=== PATIENT | male | born 1970 | race Caucasian/White ===

== ENCOUNTER 2018-09-17 17:22 | Emergency (ER) | payer MEDICAID ==
[~2018-09-17] VITALS: Ht 175.3 cm; Wt 63.5 kg
[2018-09-17 17:28] VITALS: BP_SYST 139
[2018-09-17 18:25] LABS: BARBITURATE, URINE NEGATIVE (NEG <=200); BENZODIAZEPINE, URINE POSITIVE (NEG <=150); CANNABINOID, URINE NEGATIVE (NEG <=50); COCAINE, URINE NEGATIVE (NEG <=150); METHAMPHETAMINES SCREEN,URINE NEGATIVE (NEG <=500); OPIATE, URINE NEGATIVE (NEG <=100); PHENCYCLIDINE SCREEN,URINE NEGATIVE (NEG <=25); UR TRICYCLIC ANTIDEPRESSANTS NEGATIVE (NEG <=300); URINE AMPHETAMINE NEGATIVE (NEG <=500); URINE METHADONE NEGATIVE (NEG <=200); URINE OXYCODONE SCREEN NEGATIVE (NEG <=100); URINE PROPOXYPHENE SCREEN NEGATIVE (NEG <=300)
[2018-09-17 18:41] LABS: BASOPHILS # (AUTO) 0.1 K/uL (0.0-0.2); BASOPHILS % (AUTO) 0.9 % (0.0-2.0); EOSINOPHILS # (AUTO) 0.3 K/uL (0.0-0.4); EOSINOPHILS % (AUTO) 4.2 % (0.0-4.0); HEMATOCRIT 44.6 % (36-54); LYMPHOCYTES % (AUTO) 25.7 % (20.5-51.5); MEAN CORPUSCULAR HEMOGLOBIN 31 pg (27-31); MEAN CORPUSCULAR HGB CONC 34 % (32-36); MEAN CORPUSCULAR VOLUME 91 fL (79.0-98.0); MONOCYTES # (AUTO) 0.8 K/uL (0.0-1.0); MONOCYTES % (AUTO) 10.3 % (1.7-9.3); NEUTROPHILS # (AUTO) 4.6 K/uL (1.8-7.7); NEUTROPHILS % (AUTO) 58.9 % (40.0-70.0); PLATELET COUNT (AUTO) 235 K/uL (130-430); WHITE BLOOD COUNT (AUTO) 7.7 K/uL (4.8-10.8)
[2018-09-17 18:49] LABS: ANION GAP 8 (5-15); CALCIUM 8.2 mg/dL (8.4-11.0); CHLORIDE 105 mmol/L (98-107); CREATININE 0.94 mg/dL (0.55-1.30); GFR AFRICAN AMERICAN 111 mL/min (>90); GLUCOSE 104 mg/dL (70-99); POTASSIUM 3.7 mmol/L (3.5-5.1); SODIUM SERUM 140 mmol/L (136-145); UREA NITROGEN, BLOOD 16 mg/dL (8-21)
[2018-09-17 18:54] LABS: ALANINE AMINOTRANSFERASE 18 U/L (12-78); ALBUMIN 3.7 g/dL (3.4-4.8); ASPARTATE AMINOTRANSFERASE 18 U/L (10-37); TOTAL BILIRUBIN 0.4 mg/dL (0.0-1.0)
[2018-09-17 18:55] LABS: ACETAMINOPHEN < 1 ug/mL (1-30); ALCOHOL, BLOOD < 3 mg/dL (<10)
[2018-09-17 20:03] VITALS: BP_SYST 139
== END 2018-09-17 20:03 | disposition home or self-care (01) ==
LOC: SED 17:22
DX: T42.4X1A Poisoning by benzodiazepines, accidental (unintentional), initial encounter (principal); Y92.89 Other specified places as the place of occurrence of the external cause
CPT/HCPCS: 36415; 80053; 80307; 85025; 99283; G0480; G0481; G0482

== ENCOUNTER 2019-01-09 13:35 | Emergency (ER) | payer MEDICAID ==
[2019-01-21 11:57] LABS: BILIRUBIN,URINE NEGATIVE (NEGATIVE); BLOOD, URINE NEGATIVE (NEGATIVE); CLARITY/URINE HAZY (CLEAR); COLOR,URINE YELLOW (YELLOW); GLUCOSE,URINE NEGATIVE (NEGATIVE); KETONES,URINE NEGATIVE (NEGATIVE); LEUKOCYTE ESTERASE ,URINE NEGATIVE (NEGATIVE); PH,URINE 6.5 (5.0-8.0); PROTEIN URINE 1+ (NEGATIVE)
[2019-01-21 11:58] LABS: NITRITE, URINE NEGATIVE (NEGATIVE); UROBILINOGEN,URINE 0.2 (0.2-1.0)
[2019-01-21 12:00] LABS: BACTERIA,URINE FEW /HPF (None Seen); RBC,URINE 0-3 /HPF (0-3); WBC,URINE 0-3 /HPF (0-3)
[2019-01-21 12:08] LABS: MUCUS,URINE 3+ /LPF (None Seen)
== END 2019-01-09 17:17 | disposition home or self-care (01) ==
LOC: SED 13:35
DX: S39.011A Strain of muscle, fascia and tendon of abdomen, initial encounter (principal); X50.9XXA Other and unspecified overexertion or strenuous movements or postures, initial encounter; Y93.89 Activity, other specified; Y92.89 Other specified places as the place of occurrence of the external cause; Y99.8 Other external cause status
CPT/HCPCS: 81000-TC; 96372; 99283

== ENCOUNTER 2023-05-21 15:48 | Inpatient (IN) | payer MEDICAID ==
[~2023-05-21] VITALS: Ht 175.3 cm; Wt 44.5 kg
[2023-05-21 15:59] VITALS: BP_SYST 101; PULSE 89; RESP 20; TEMP 95.9; O2SAT 93
[2023-05-21 17:48] LABS: INFLUENZA TYPE A Negative (NEGATIVE); INFLUENZA TYPE B NEGATIVE (NEGATIVE)
[2023-05-21] MEDS: NACL 0.9% 1,000 ML IV ONE (19:30)
[2023-05-21 20:05] LABS: HEMOGLOBIN 11.6 g/dL (14.0-18.0); MEAN CORPUSCULAR HEMOGLOBIN 32 pg (27-31); MEAN CORPUSCULAR HGB CONC 34 % (32-36); MEAN CORPUSCULAR VOLUME 95 fL (79.0-98.0); PLATELET COUNT (AUTO) 264 K/uL (130-430); RED CELL DISTRIBUTION WIDTH 14.7 % (9.0-15.0); WHITE BLOOD COUNT (AUTO) 10.1 K/uL (4.8-10.8)
[2023-05-21 20:11] LABS: ALANINE AMINOTRANSFERASE 89 U/L (12-78); ALBUMIN 2.3 g/dL (3.4-4.8); ANION GAP 6 (5-15); ASPARTATE AMINOTRANSFERASE 97 U/L (10-37); CARBON DIOXIDE 31 mmol/L (23-29); CHLORIDE 110 mmol/L (98-107); CREATININE 0.83 mg/dL (0.55-1.30); GFR AFRICAN AMERICAN 126 mL/min (>90); GFR NON AFRICAN-AMERICAN 104 mL/min (>90); GLUCOSE 99 mg/dL (74-106); SODIUM SERUM 147 mmol/L (136-145); TOTAL BILIRUBIN 0.6 mg/dL (0.0-1.0); TOTAL PROTEIN, SERUM 7.5 g/dL (6.4-8.3); UREA NITROGEN, BLOOD 45 mg/dL (8-21)
[2023-05-21 20:14] LABS: BILIRUBIN,DIRECT 0.2 mg/dL (0.0-0.3)
[2023-05-21] MEDS: IPRATROPIUM/ALBUTEROL SULFATE 3 ML AMPUL.NEB (DUONEB) INH ONE (20:31)
[2023-05-21 20:46] LABS: INR 1.2 (0.80-1.20); PROTHROMBIN TIME 12.5 SECS (9.5-12.5)
[2023-05-21] MEDS ORDERED: cefTRIAXone 1 GM IVPB PREMIX 50 ML IV ONE (20:55)
[2023-05-21] MEDS: cefTRIAXone 1 GM IVPB PREMIX 50 ML IV ONE (21:00)
[2023-05-21 21:45] LABS: BILIRUBIN,URINE NEGATIVE (NEGATIVE); BLOOD, URINE NEGATIVE (NEGATIVE); CLARITY/URINE CLEAR (CLEAR); COLOR,URINE YELLOW (YELLOW); GLUCOSE,URINE NEGATIVE (NEGATIVE); KETONES,URINE NEGATIVE (NEGATIVE); LEUKOCYTE ESTERASE ,URINE NEGATIVE (NEGATIVE); NITRITE, URINE NEGATIVE (NEGATIVE); PROTEIN URINE NEGATIVE (NEGATIVE)
[2023-05-21] MEDS ORDERED: DOCUSATE SODIUM 100 MG CAPSULE PO PRN (22:15)
[2023-05-21] MEDS ORDERED: ONDANSETRON HCL 4 MG/2 ML VIAL IVP PRN (22:15)
[2023-05-21] MEDS ORDERED: MUPIROCIN 2% TOPICAL OINTMENT 22 GM NS PRN (22:15)
[2023-05-21] MEDS ORDERED: ZOLPIDEM TARTRATE 5 MG TABLET PO PRN (22:15)
[2023-05-21] MEDS ORDERED: MAGNESIUM SULFATE 50 ML IV PRN (22:15)
[2023-05-21] MEDS ORDERED: POTASSIUM CHLORIDE 20 MEQ TABLET.ER PO PRN (22:15)
[2023-05-21] MEDS ORDERED: MORPHINE 2 MG/ML INJ. SYRINGE IVP PRN ×2 (22:15)
[2023-05-21] MEDS ORDERED: LORazepam 2 MG/ML VIAL IVP PRN (22:15)
[2023-05-21 22:26] LABS: BAND % (MANUAL) 22 % (0-6); BASOPHILS % (MANUAL) 0 % (0-2); EOSINOPHILS % (MANUAL) 0 % (0-7); LYMPHOCYTES % (MANUAL) 9 % (20-46); MONOCYTES % (MANUAL) 3 % (0-11); PLATELET ESTIMATE ADEQUATE (ADEQUATE)
[2023-05-21] MEDS ORDERED: PIPERACILLIN/TAZOBACTAM 3.375 GM/VIAL (ZOSYN) IV ONE (22:26)
[2023-05-21] MEDS: PIPERACILLIN/TAZO 3.375 GM in D5W 50 ML IV SCH (22:39)
[2023-05-21] MEDS: NACL 0.9% 1,000 ML IV SCH (22:40)
[2023-05-21] MEDS: IPRATROPIUM/ALBUTEROL SULFATE 3 ML AMPUL.NEB (DUONEB) INH PRN (23:37)
[2023-05-21 23:38] VITALS: BP_SYST 124; PULSE 59; O2SAT 95
[2023-05-21 23:39] VITALS: O2SAT 95
[2023-05-22] MEDS ORDERED: DONE5TAB33 PO (01:06)
[2023-05-22] MEDS ORDERED: DICL100G60 TP (01:06)
[2023-05-22] MEDS ORDERED: ESCI5TAB16 PO (01:06)
[2023-05-22] MEDS ORDERED: ERGO1250 PO (01:06)
[2023-05-22 05:14] LABS: HEMATOCRIT 32.9 % (36-54); LYMPHOCYTES # (AUTO) 0.2 K/uL (1.0-5.5); LYMPHOCYTES % (AUTO) 2.5 % (20.5-51.5); MEAN CORPUSCULAR HEMOGLOBIN 32 pg (27-31); MEAN CORPUSCULAR HGB CONC 33 % (32-36); MEAN CORPUSCULAR VOLUME 96 fL (79.0-98.0); MONOCYTES # (AUTO) 0.2 K/uL (0.0-1.0); MONOCYTES % (AUTO) 1.9 % (1.7-9.3); NEUTROPHILS # (AUTO) 9.3 K/uL (1.8-7.7); NEUTROPHILS % (AUTO) 95.6 % (40.0-70.0); PLATELET COUNT (AUTO) 231 K/uL (130-430); RED BLOOD CELL COUNT(AUTO) 3.45 MIL/uL (4.2-6.2); RED CELL DISTRIBUTION WIDTH 14.4 % (9.0-15.0); WHITE BLOOD COUNT (AUTO) 9.7 K/uL (4.8-10.8)
[2023-05-22 05:18] LABS: ALBUMIN 1.9 g/dL (3.4-4.8); BILIRUBIN,DIRECT 0.2 mg/dL (0.0-0.3); CALCIUM 8.1 mg/dL (8.4-11.0); CREATININE 0.67 mg/dL (0.55-1.30); POTASSIUM 3.5 mmol/L (3.5-5.1); TOTAL BILIRUBIN 0.4 mg/dL (0.0-1.0); TOTAL PROTEIN, SERUM 6.2 g/dL (6.4-8.3)
[2023-05-22] MEDS ORDERED: PIPERACILLIN/TAZOBACTAM 3.375 GM/VIAL (ZOSYN) IV ONE (05:49)
[2023-05-22] MEDS: HEPARIN SODIUM,PORCINE 5,000 UNITS/ML VIAL SUBCUT SCH (09:13)
[2023-05-22] MEDS: 0.45% NACL 1,000 ML IV SCH (09:37)
[2023-05-22] MEDS: ACETAMINOPHEN 325 MG TABLET PO PRN (10:31)
[2023-05-22 16:00] VITALS: BP_SYST 78; PULSE 52; RESP 17; TEMP 97; O2SAT 98
[2023-05-22] MEDS: PIPERACILLIN/TAZOBACTAM 3.375 GM/ D5W 50 ML IV SCH (17:33)
[2023-05-22] MEDS: FLUTICASONE PROPIONATE 50 mCg/SPRAY 16 GM NS ONE (17:36)
[2023-05-22 20:00] VITALS: BP_SYST 109; BP_SYST 79; PULSE 101; PULSE 42; RESP 18; RESP 19; TEMP 97.8; TEMP 98.6; O2SAT 2; O2SAT 99
[2023-05-22] MEDS: FLUTICASONE PROPIONATE 50 mCg/SPRAY 16 GM NS SCH (22:55)
[2023-05-23] VITALS: BP_SYST 73; PULSE 44; RESP 16; TEMP 98.6; O2SAT 95
[2023-05-23 04:00] VITALS: BP_SYST 86; PULSE 42; RESP 16; TEMP 98.6; O2SAT 100
[2023-05-23 06:20] LABS: CALCIUM 7.7 mg/dL (8.4-11.0); CREATININE 0.58 mg/dL (0.55-1.30); POTASSIUM 3.8 mmol/L (3.5-5.1)
[2023-05-23 06:35] LABS: BASOPHILS % (AUTO) 0.1 % (0.0-2.0); EOSINOPHILS # (AUTO) 0.1 K/uL (0.0-0.4); EOSINOPHILS % (AUTO) 0.8 % (0.0-4.0); HEMATOCRIT 26.9 % (36-54); HEMOGLOBIN 9.2 g/dL (14.0-18.0); LYMPHOCYTES % (AUTO) 10.8 % (20.5-51.5); MEAN CORPUSCULAR HEMOGLOBIN 33 pg (27-31); MEAN CORPUSCULAR HGB CONC 34 % (32-36); MEAN CORPUSCULAR VOLUME 96 fL (79.0-98.0); MONOCYTES # (AUTO) 0.3 K/uL (0.0-1.0); NEUTROPHILS % (AUTO) 85.3 % (40.0-70.0); PLATELET COUNT (AUTO) 191 K/uL (130-430); RED BLOOD CELL COUNT(AUTO) 2.81 MIL/uL (4.2-6.2); RED CELL DISTRIBUTION WIDTH 14.3 % (9.0-15.0); WHITE BLOOD COUNT (AUTO) 9.4 K/uL (4.8-10.8)
[2023-05-23 08:00] VITALS: BP_SYST 73; PULSE 64; RESP 17; TEMP 98.9; O2SAT 95
[2023-05-23] MEDS ORDERED: NON-FORMULARY MEDICATION (Escitalopram Oxalate 1 TAB) PO SCH (09:00)
[2023-05-23] MEDS: CITALOPRAM HYDROBROMIDE 20 MG TABLET PO SCH (10:13)
[2023-05-23] MEDS: DONEPEZIL HCL 5 MG TABLET (ARICEPT) PO SCH (10:13)
[2023-05-23 11:24] VITALS: BP_SYST 90; PULSE 62; RESP 16; TEMP 98; O2SAT 93
[2023-05-23 15:15] VITALS: BP_SYST 91; PULSE 68; RESP 16; TEMP 97.5; O2SAT 93
[2023-05-23 20:00] VITALS: BP_SYST 86; PULSE 55; RESP 17; TEMP 98.1; O2SAT 2; O2SAT 96
[2023-05-23] MEDS: D5W 1,000 ML IV SCH (20:39)
[2023-05-24] VITALS (9 sets, daily range): BP systolic 78–100; PULSE 38–70; RESP 15–18; TEMP 96.8–98.9; O2SAT 2–99
[2023-05-24 05:57] LABS: BASOPHILS % (AUTO) 0.2 % (0.0-2.0); EOSINOPHILS % (AUTO) 0.5 % (0.0-4.0); HEMATOCRIT 27.3 % (36-54); HEMOGLOBIN 9.3 g/dL (14.0-18.0); LYMPHOCYTES # (AUTO) 0.9 K/uL (1.0-5.5); LYMPHOCYTES % (AUTO) 9.9 % (20.5-51.5); MEAN CORPUSCULAR HEMOGLOBIN 32 pg (27-31); MEAN CORPUSCULAR HGB CONC 34 % (32-36); MEAN CORPUSCULAR VOLUME 95 fL (79.0-98.0); MONOCYTES # (AUTO) 0.3 K/uL (0.0-1.0); MONOCYTES % (AUTO) 3.2 % (1.7-9.3); NEUTROPHILS # (AUTO) 7.9 K/uL (1.8-7.7); NEUTROPHILS % (AUTO) 86.2 % (40.0-70.0); PLATELET COUNT (AUTO) 195 K/uL (130-430); RED BLOOD CELL COUNT(AUTO) 2.87 MIL/uL (4.2-6.2); RED CELL DISTRIBUTION WIDTH 14.2 % (9.0-15.0); WHITE BLOOD COUNT (AUTO) 9.2 K/uL (4.8-10.8)
[2023-05-24 06:19] LABS: CALCIUM 7.1 mg/dL (8.4-11.0); CREATININE 0.6 mg/dL (0.55-1.30)
[2023-05-24] MEDS ORDERED: AMOX-423 PO (08:58)
[2023-05-24] MEDS ORDERED: ALBMDI INH (08:58)
[2023-05-24] MEDS: MIDODRINE HCL 5 MG TABLET (PROAMATINE) PO SCH (15:00)
== END 2023-05-24 16:20 | disposition home or self-care (01) | DRG 137 ==
LOC: SED 15:48 → SMU 22:00 → STU 22:03
PROVIDERS: ADMIT General Practice; ATTEND General Practice
DX: J69.0 Pneumonitis due to inhalation of food and vomit (principal); J96.01 Acute respiratory failure with hypoxia; E43 Unspecified severe protein-calorie malnutrition; E87.0 Hyperosmolality and hypernatremia; G10 Huntington's disease; D63.8 Anemia in other chronic diseases classified elsewhere; I95.9 Hypotension, unspecified; E86.0 Dehydration; Z20.822 Contact with and (suspected) exposure to COVID-19; J44.9 Chronic obstructive pulmonary disease, unspecified; F03.A0 Unspecified dementia, mild, without behavioral disturbance, psychotic disturbance, mood disturbance, and anxiety; E86.1 Hypovolemia; Z79.899 Other long term (current) drug therapy; Z99.3 Dependence on wheelchair; Z68.1 Body mass index [BMI] 19.9 or less, adult; F32.A Depression, unspecified; R62.50 Unspecified lack of expected normal physiological development in childhood; R74.01 Elevation of levels of liver transaminase levels
CPT/HCPCS: 36415; 71045; 80048; 80076; 81001; 81003; 83037; 83605; 83735; 84443; 84484; 85007; 85025; 85027; 85610; 85730; 87040; 87086; 93005; 94640; 94760; 96361; 96365; 99285; G0378; J0696; J1644; J2543; J7060

== ENCOUNTER 2023-06-07 16:03 | Inpatient (IN) | payer MEDICAID ==
[~2023-06-07] VITALS: Ht 175.3 cm; Wt 38.1 kg
[~2023-06-07 16:03] MED LIST: ALBMDI INH; AMOX-423 PO; DICL100G60 TP; DONE5TAB33 PO; ERGO1250 PO; ESCI5TAB16 PO
[2023-06-07 16:10] VITALS: BP_SYST 79; PULSE 66; RESP 18; TEMP 97.8; O2SAT 96
[2023-06-07] MEDS: D5/0.45 NS 1,000 ML IV ONE (17:24)
[2023-06-07 17:31] LABS: BASOPHILS # (AUTO) 0.1 K/uL (0.0-0.2); BASOPHILS % (AUTO) 0.6 % (0.0-2.0); EOSINOPHILS % (AUTO) 0.2 % (0.0-4.0); HEMATOCRIT 34.1 % (36-54); HEMOGLOBIN 11.5 g/dL (14.0-18.0); LYMPHOCYTES # (AUTO) 1.5 K/uL (1.0-5.5); LYMPHOCYTES % (AUTO) 15.9 % (20.5-51.5); MEAN CORPUSCULAR HEMOGLOBIN 32 pg (27-31); MEAN CORPUSCULAR HGB CONC 34 % (32-36); MEAN CORPUSCULAR VOLUME 95 fL (79.0-98.0); MONOCYTES # (AUTO) 0.6 K/uL (0.0-1.0); MONOCYTES % (AUTO) 5.9 % (1.7-9.3); NEUTROPHILS # (AUTO) 7.4 K/uL (1.8-7.7); NEUTROPHILS % (AUTO) 77.4 % (40.0-70.0); PLATELET COUNT (AUTO) 313 K/uL (130-430); RED BLOOD CELL COUNT(AUTO) 3.59 MIL/uL (4.2-6.2); RED CELL DISTRIBUTION WIDTH 13.7 % (9.0-15.0); WHITE BLOOD COUNT (AUTO) 9.6 K/uL (4.8-10.8)
[2023-06-07 17:47] LABS: ACETONE, SERUM NEGATIVE (NEGATIVE)
[2023-06-07 18:05] LABS: ALANINE AMINOTRANSFERASE 181 U/L (12-78); ANION GAP 7 (5-15); ASPARTATE AMINOTRANSFERASE 187 U/L (10-37); BILIRUBIN,DIRECT 0.2 mg/dL (0.0-0.3); CALCIUM 7.8 mg/dL (8.4-11.0); CARBON DIOXIDE 27 mmol/L (23-29); CHLORIDE 105 mmol/L (98-107); CREATINE KINASE, TOTAL 87 U/L (39-308); CREATININE 0.61 mg/dL (0.55-1.30); GFR AFRICAN AMERICAN 179 mL/min (>90); GLUCOSE 73 mg/dL (74-106); POTASSIUM 3.8 mmol/L (3.5-5.1); SODIUM SERUM 139 mmol/L (136-145); TOTAL BILIRUBIN 0.5 mg/dL (0.0-1.0); TOTAL PROTEIN, SERUM 7.2 g/dL (6.4-8.3); UREA NITROGEN, BLOOD 47 mg/dL (8-21)
[2023-06-07 18:07] LABS: INR 1.4 (0.80-1.20); PROTHROMBIN TIME 13.8 SECS (9.5-12.5)
[2023-06-07 18:08] LABS: GFR NON AFRICAN-AMERICAN 148 mL/min (>90)
[2023-06-07] MEDS ORDERED: CYCL10TA24 PO (18:41)
[2023-06-07] MEDS ORDERED: DONE10TA44 PO (18:41)
[2023-06-07] MEDS ORDERED: CALCIFEROL PO (18:41)
[2023-06-07] MEDS ORDERED: MAGNESIUM SULFATE 50 ML IV PRN (19:45)
[2023-06-07] MEDS ORDERED: ACETAMINOPHEN 500 MG TABLET PO PRN (19:45)
[2023-06-07] MEDS ORDERED: chlordiazePOXIDE HCL 25 MG CAPSULE PO SCH (19:45)
[2023-06-07] MEDS ORDERED: MUPIROCIN 2% TOPICAL OINTMENT 22 GM NS PRN (19:45)
[2023-06-07] MEDS ORDERED: MORPHINE 2 MG/ML INJ. SYRINGE IVP PRN (19:45)
[2023-06-07] MEDS ORDERED: ZOLPIDEM TARTRATE 5 MG TABLET PO PRN (19:45)
[2023-06-07] MEDS ORDERED: IPRATROPIUM/ALBUTEROL SULFATE 3 ML AMPUL.NEB (DUONEB) INH PRN (19:45)
[2023-06-07] MEDS ORDERED: LORazepam 2 MG/ML VIAL IVP PRN (19:45)
[2023-06-07] MEDS ORDERED: DOCUSATE SODIUM 100 MG CAPSULE PO PRN (19:45)
[2023-06-07] MEDS ORDERED: NALOXONE HCL 0.4 MG/ML AMP (NARCAN) IVP PRN (19:45)
[2023-06-07] MEDS ORDERED: ONDANSETRON HCL 4 MG/2 ML VIAL IVP PRN (19:45)
[2023-06-07] MEDS ORDERED: POTASSIUM CHLORIDE 20 MEQ TABLET.ER PO PRN (19:45)
[2023-06-07] MEDS: D5NS 1,000 ML IV SCH (20:25)
[2023-06-07 22:08] LABS: BILIRUBIN,URINE NEGATIVE (NEGATIVE); BLOOD, URINE NEGATIVE (NEGATIVE); CLARITY/URINE CLEAR (CLEAR); COLOR,URINE YELLOW (YELLOW); GLUCOSE,URINE NEGATIVE (NEGATIVE); KETONES,URINE NEGATIVE (NEGATIVE); LEUKOCYTE ESTERASE ,URINE NEGATIVE (NEGATIVE); NITRITE, URINE NEGATIVE (NEGATIVE); PROTEIN URINE NEGATIVE (NEGATIVE); UROBILINOGEN,URINE 0.2 (0.2-1.0)
[2023-06-07 23:58] VITALS: BP_SYST 92; PULSE 50; RESP 16; TEMP 97.2
[2023-06-08] VITALS (7 sets, daily range): BP systolic 92–148; PULSE 45–77; RESP 16–20; TEMP 96.2–98.6; O2SAT 93–99
[2023-06-08 05:29] LABS: BASOPHILS % (AUTO) 0.6 % (0.0-2.0); EOSINOPHILS % (AUTO) 0.2 % (0.0-4.0); HEMATOCRIT 33.4 % (36-54); HEMOGLOBIN 11.4 g/dL (14.0-18.0); LYMPHOCYTES # (AUTO) 1.5 K/uL (1.0-5.5); LYMPHOCYTES % (AUTO) 21.4 % (20.5-51.5); MEAN CORPUSCULAR HEMOGLOBIN 33 pg (27-31); MEAN CORPUSCULAR HGB CONC 34 % (32-36); MEAN CORPUSCULAR VOLUME 95 fL (79.0-98.0); MONOCYTES # (AUTO) 0.3 K/uL (0.0-1.0); NEUTROPHILS % (AUTO) 72.8 % (40.0-70.0); PLATELET COUNT (AUTO) 282 K/uL (130-430); RED BLOOD CELL COUNT(AUTO) 3.51 MIL/uL (4.2-6.2); RED CELL DISTRIBUTION WIDTH 13.8 % (9.0-15.0); WHITE BLOOD COUNT (AUTO) 6.9 K/uL (4.8-10.8)
[2023-06-08 05:53] LABS: BILIRUBIN,DIRECT 0.2 mg/dL (0.0-0.3); CALCIUM 7.8 mg/dL (8.4-11.0); CREATININE 0.55 mg/dL (0.55-1.30); POTASSIUM 3.7 mmol/L (3.5-5.1); TOTAL BILIRUBIN 0.6 mg/dL (0.0-1.0)
[2023-06-08] MEDS: CEFAZOLIN 1 GM IVPB PREMIX 50 ML IV ONE ×2 (08:00→10:49)
[2023-06-08] MEDS: MIDAZOLAM HCL 5 MG/5 ML VIAL ONE (09:16)
[2023-06-08] MEDS: fentaNYL CITRATE/PF 100 MCG/2 ML AMP ONE (09:16)
[2023-06-08] MEDS: ATROPINE SULFATE 0.4 MG/ML VIAL ONE ×2 (10:49)
[2023-06-09] VITALS (7 sets, daily range): BP systolic 90–150; PULSE 60–95; RESP 16–24; TEMP 97–97.8; O2SAT 97–100
[2023-06-09 06:18] LABS: BASOPHILS % (AUTO) 0.1 % (0.0-2.0); EOSINOPHILS % (AUTO) 0.3 % (0.0-4.0); HEMATOCRIT 32.1 % (36-54); LYMPHOCYTES # (AUTO) 1.3 K/uL (1.0-5.5); LYMPHOCYTES % (AUTO) 17.4 % (20.5-51.5); MEAN CORPUSCULAR HEMOGLOBIN 33 pg (27-31); MEAN CORPUSCULAR HGB CONC 34 % (32-36); MEAN CORPUSCULAR VOLUME 95 fL (79.0-98.0); MONOCYTES # (AUTO) 0.4 K/uL (0.0-1.0); MONOCYTES % (AUTO) 5.6 % (1.7-9.3); NEUTROPHILS % (AUTO) 76.6 % (40.0-70.0); PLATELET COUNT (AUTO) 271 K/uL (130-430); RED BLOOD CELL COUNT(AUTO) 3.39 MIL/uL (4.2-6.2); RED CELL DISTRIBUTION WIDTH 13.7 % (9.0-15.0); WHITE BLOOD COUNT (AUTO) 7.8 K/uL (4.8-10.8)
[2023-06-09 06:20] LABS: CALCIUM 7.4 mg/dL (8.4-11.0); CREATININE 0.49 mg/dL (0.55-1.30); POTASSIUM 4.5 mmol/L (3.5-5.1)
[2023-06-09] MEDS: DONEPEZIL HCL 5 MG TABLET (ARICEPT) PO SCH ×2 (09:37→22:08)
[2023-06-09] MEDS: CITALOPRAM HYDROBROMIDE 20 MG TABLET PO SCH (09:37)
[2023-06-09 12:15] LABS: ABG O2 SAT% ESTIMATE 97.5 % (94.0-100.0); BLOOD GAS BASE EXCESS -1.7 mmol/L (-3.0-3.0); BLOOD GAS HCO3 20.6 mmol/L (21.0-27.0); BLOOD GAS PCO2 28.9 mmHg (32.0-45.0); BLOOD GAS PH 7.471 (7.350-7.450); BLOOD GAS PO2 91.3 mmHg (75.0-100.0)
[2023-06-09 12:18] LABS: ALLEN'S TEST POSITIVE (P)
[2023-06-09] MEDS: CYCLOBENZAPRINE HCL 10 MG TABLET (FLEXERIL) PO SCH (22:08)
[2023-06-10 06:57] LABS: BASOPHILS % (AUTO) 0.1 % (0.0-2.0); EOSINOPHILS % (AUTO) 0.4 % (0.0-4.0); HEMOGLOBIN 11.3 g/dL (14.0-18.0); LYMPHOCYTES # (AUTO) 0.8 K/uL (1.0-5.5); LYMPHOCYTES % (AUTO) 12.1 % (20.5-51.5); MEAN CORPUSCULAR HEMOGLOBIN 32 pg (27-31); MEAN CORPUSCULAR HGB CONC 34 % (32-36); MEAN CORPUSCULAR VOLUME 94 fL (79.0-98.0); MONOCYTES # (AUTO) 0.3 K/uL (0.0-1.0); MONOCYTES % (AUTO) 4.4 % (1.7-9.3); NEUTROPHILS # (AUTO) 5.3 K/uL (1.8-7.7); PLATELET COUNT (AUTO) 211 K/uL (130-430); RED CELL DISTRIBUTION WIDTH 13.5 % (9.0-15.0); WHITE BLOOD COUNT (AUTO) 6.4 K/uL (4.8-10.8)
[2023-06-10 07:10] LABS: CALCIUM 7.4 mg/dL (8.4-11.0); CREATININE 0.37 mg/dL (0.55-1.30); POTASSIUM 3.7 mmol/L (3.5-5.1)
[2023-06-10 07:57] VITALS: BP_SYST 97; PULSE 56; TEMP 97.7; O2SAT 16
[2023-06-10 12:30] VITALS: BP_SYST 94; PULSE 61; RESP 18; TEMP 97.9; O2SAT 99
[2023-06-10 16:33] VITALS: O2SAT 99
[2023-06-10 16:35] VITALS: BP_SYST 100; PULSE 67; RESP 16; TEMP 98.4; O2SAT 98
[2023-06-10 20:00] VITALS: BP_SYST 102; PULSE 62; RESP 16; TEMP 98; O2SAT 95
[2023-06-11 00:50] VITALS: BP_SYST 96; PULSE 62; RESP 18; TEMP 97.6; O2SAT 100
[2023-06-11 05:43] LABS: BASOPHILS % (AUTO) 0.2 % (0.0-2.0); EOSINOPHILS % (AUTO) 0.6 % (0.0-4.0); HEMATOCRIT 34.8 % (36-54); HEMOGLOBIN 11.9 g/dL (14.0-18.0); LYMPHOCYTES # (AUTO) 0.7 K/uL (1.0-5.5); MEAN CORPUSCULAR HEMOGLOBIN 33 pg (27-31); MEAN CORPUSCULAR HGB CONC 34 % (32-36); MEAN CORPUSCULAR VOLUME 95 fL (79.0-98.0); MONOCYTES # (AUTO) 0.3 K/uL (0.0-1.0); MONOCYTES % (AUTO) 4.8 % (1.7-9.3); NEUTROPHILS # (AUTO) 5.9 K/uL (1.8-7.7); NEUTROPHILS % (AUTO) 84.4 % (40.0-70.0); PLATELET COUNT (AUTO) 141 K/uL (130-430); RED BLOOD CELL COUNT(AUTO) 3.66 MIL/uL (4.2-6.2); RED CELL DISTRIBUTION WIDTH 13.7 % (9.0-15.0); WHITE BLOOD COUNT (AUTO) 6.9 K/uL (4.8-10.8)
[2023-06-11 06:33] LABS: CALCIUM 7.8 mg/dL (8.4-11.0); CREATININE 0.37 mg/dL (0.55-1.30); POTASSIUM 3.6 mmol/L (3.5-5.1)
[2023-06-11 07:27] VITALS: PULSE 69; O2SAT 100
[2023-06-11 08:00] VITALS: BP_SYST 97; PULSE 54; TEMP 97.2
[2023-06-11 11:28] VITALS: BP_SYST 97; PULSE 65; RESP 16; TEMP 96.9; O2SAT 99
[2023-06-11 15:16] VITALS: BP_SYST 91; PULSE 69; RESP 15; TEMP 98.9; O2SAT 100
[2023-06-11 20:00] VITALS: BP_SYST 90; PULSE 61; RESP 18; TEMP 97.8; O2SAT 98
[2023-06-12] VITALS: BP_SYST 94; PULSE 64; RESP 16; TEMP 98.2; O2SAT 100
[2023-06-12 05:12] LABS: BASOPHILS % (AUTO) 0.1 % (0.0-2.0); EOSINOPHILS # (AUTO) 0.1 K/uL (0.0-0.4); EOSINOPHILS % (AUTO) 1.2 % (0.0-4.0); HEMATOCRIT 29.9 % (36-54); HEMOGLOBIN 10.3 g/dL (14.0-18.0); LYMPHOCYTES # (AUTO) 0.8 K/uL (1.0-5.5); LYMPHOCYTES % (AUTO) 13.1 % (20.5-51.5); MEAN CORPUSCULAR HEMOGLOBIN 32 pg (27-31); MEAN CORPUSCULAR HGB CONC 35 % (32-36); MEAN CORPUSCULAR VOLUME 93 fL (79.0-98.0); MONOCYTES # (AUTO) 0.4 K/uL (0.0-1.0); MONOCYTES % (AUTO) 6.3 % (1.7-9.3); NEUTROPHILS # (AUTO) 4.6 K/uL (1.8-7.7); NEUTROPHILS % (AUTO) 79.3 % (40.0-70.0); PLATELET COUNT (AUTO) 111 K/uL (130-430); RED CELL DISTRIBUTION WIDTH 13.6 % (9.0-15.0); WHITE BLOOD COUNT (AUTO) 5.8 K/uL (4.8-10.8)
[2023-06-12 05:45] LABS: CALCIUM 7.5 mg/dL (8.4-11.0); CREATININE 0.33 mg/dL (0.55-1.30); POTASSIUM 3.4 mmol/L (3.5-5.1)
[2023-06-12 08:23] VITALS: BP_SYST 98; PULSE 63; RESP 20; TEMP 97.3; O2SAT 99
[2023-06-12] MEDS ORDERED: GASTROGRAFIN 120 ML ONE (08:29)
[2023-06-12 09:00] VITALS: O2SAT 99
[2023-06-12 12:00] VITALS: BP_SYST 101; PULSE 88; RESP 16; TEMP 97.8; O2SAT 95
[2023-06-12 16:00] VITALS: BP_SYST 102; PULSE 68; RESP 18; TEMP 97.4; O2SAT 96
[2023-06-12 20:00] VITALS: BP_SYST 93; PULSE 68; RESP 18; TEMP 98.2; O2SAT 97
[2023-06-12] MEDS: HEPARIN SODIUM,PORCINE 5,000 UNITS/ML VIAL SUBCUT SCH (22:12)
[2023-06-13 06:58] LABS: ALBUMIN 1.3 g/dL (3.4-4.8); CALCIUM 7.5 mg/dL (8.4-11.0); CREATININE 0.29 mg/dL (0.55-1.30); POTASSIUM 3.9 mmol/L (3.5-5.1); TOTAL BILIRUBIN 0.3 mg/dL (0.0-1.0); TOTAL PROTEIN, SERUM 5.4 g/dL (6.4-8.3)
[2023-06-13 07:00] VITALS: O2SAT 96
[2023-06-13 08:00] VITALS: BP_SYST 101; PULSE 63; RESP 18; TEMP 98.4; O2SAT 95
[2023-06-13 12:21] VITALS: BP_SYST 99; PULSE 65; RESP 17; TEMP 98.3; O2SAT 97
[2023-06-13 16:39] VITALS: BP_SYST 100; PULSE 64; RESP 18; TEMP 98.5; O2SAT 96
[2023-06-13 16:49] VITALS: BP_SYST 105; PULSE 65; RESP 18; TEMP 98.4; O2SAT 96
== END 2023-06-13 18:00 | disposition home or self-care (01) | DRG 254 ==
LOC: SED 16:03 → SMU 19:08
PROVIDERS: ADMIT General Practice; ATTEND General Practice
PROC: 0DH68UZ Insertion of Feeding Device into Stomach, Via Natural or Artificial Opening Endoscopic (ICD-10-PCS; principal; 2023-06-08 09:00)
DX: R13.10 Dysphagia, unspecified (principal); E43 Unspecified severe protein-calorie malnutrition; G10 Huntington's disease; R62.7 Adult failure to thrive; J44.9 Chronic obstructive pulmonary disease, unspecified; Z79.899 Other long term (current) drug therapy; Z68.1 Body mass index [BMI] 19.9 or less, adult
CPT/HCPCS: 36415; 36600; 43246; 71045; 74240; 80048; 80053; 80076; 81001; 81003; 82009; 82550; 82803; 83037; 83605; 83735; 85025; 85610; 85730; 93005; 94070; 94760; 97110-GP; 97112-GP; 97116-GP; 97530-GP; 99285; J0461; J0690; J1644; J2250; J3010; Q9963